=== PATIENT | male | born 1995 | race Caucasian/White ===

== ENCOUNTER 2021-05-06 20:31 | Emergency (ER) | payer OTHER ==
[2021-05-06 20:42] VITALS: BP 133/83; PULSE 88; TEMP 98; BMI 39.8
[2021-05-06] MEDS ORDERED: ACETAMINOPHEN 500 MG TABLET (FP) PO ONE (22:14)
[2021-05-06] MEDS ORDERED: ACETAMINOPHEN 500 MG TABLET (FP) ONE (22:17)
== END 2021-05-06 22:22 | disposition home or self-care (01) ==
LOC: FER 20:31
DX: S06.0X9A Concussion with loss of consciousness of unspecified duration, initial encounter (principal); V49.40XA Driver injured in collision with unspecified motor vehicles in traffic accident, initial encounter
CPT/HCPCS: 70450-TC; 99284-25

== ENCOUNTER 2023-09-24 11:10 | Emergency (ER) | payer OTHER ==
[2023-09-24 11:22] VITALS: BP 155/98; PULSE 90; RESP 18; TEMP 98.1; BMI 37.2
[2023-09-24] MEDS ORDERED: ACETAMINOPHEN 500 MG TABLET (FP) PO ONE (11:24)
[2023-09-24] MEDS ORDERED: ACETAMINOPHEN 500 MG TABLET (FP) ONE (11:27)
[2023-09-24] MEDS ORDERED: DIPHTH,PERTUSS(ACELL),TET 0.5 ML DISP.SYRIN IM ONE ×2 (11:33→11:36)
== END 2023-09-24 12:40 | disposition home or self-care (01) ==
LOC: FER 11:10
PROC: 3E0234Z Introduction of Serum, Toxoid and Vaccine into Muscle, Percutaneous Approach (ICD-10-PCS; principal; 2023-09-24)
DX: S69.92XA Unspecified injury of left wrist, hand and finger(s), initial encounter (principal); W22.8XXA Striking against or struck by other objects, initial encounter; Y99.0 Civilian activity done for income or pay; Y92.9 Unspecified place or not applicable
CPT/HCPCS: 73130-TC-LT-FY; 90715; 99283-25